=== PATIENT | male | born 1985 | race Caucasian/White ===

== ENCOUNTER 2023-07-18 08:00 | Outpatient (RCR) | payer MEDICAID, SELFPAY ==
--- NOTE | 2023-07-18 10:00 | BH.NA ---
Physical Data Vital Signs Pulse Rate: 67 Blood Pressure: 124/73 Height/Weight Height: 1.83 m Weight:: 95.254 kg Weight in Pounds: 210.0 lbs Current Medication Compliance Medication Compliance Do you take your medication as prescribed?: Yes Nutritional History Appetite Nutritional Instructions: Describe your appetite:: Good Additional nutritional information:: Client states he has gained about 20 lbs in the last month since starting his new medication (that he believes is Abilify). Functional Assessment Sleep Pattern Describe any problems with sleeping: Client states he usually sleeps about 6-8 hours per night, but does fall asleep during the day some. Client states he is getting a sleep study done tomorrow to rule out narcolepsy. Sensory/Communication Assess Communication Problems Do you have difficulty understanding what people are saying?: No Medical Problems/History Pain Assessment Do you have acute or chronic pain?: No Additional History Additional comments:: ADHD Surgical History Surgical History Have you had any surgeries? If so, list type and date:: Yes (varicocele) Substance Abuse Substance Abuse Please describe substance abuse in the last 30 days:: Client states he drinks alcohol socially, stating he drinks less than 1 time per week. Client is a current cigarette smoker, 1/2 pack per day and has been smoking for 6 years. Client states he has tried cocaine, marijuana, and acid in the past. Client states he used to drink 2 energy drinks per day for about 2 years, but states he does not drink them on a regular basis anymore. Mental Status Summary Mental Status Significant Findings/Observations on Appearance and Mood:: Client is alert and oriented x 4. Client is casually groomed. Client is cooperative with assessment. Client makes good eye contact. Client's voice has normal rate and volume. Client has appropriate affect. Client makes logical associations and has normal processing. Client denies delusions/hallucinations. Client denies SI since being discharged from [facility] in May 2023. Suicide Assessment Suicidal Ideation Are you currently or have you been suicidal in the past?: Yes Suicidal Intentional Rating Scale (SIRS): Suicidal thoughts (past) (denies current SI) Physician Notification Past Psychiatric History MH Treatment Hx Past Psychiatric Medications:: Lavonneaylar, Latuda, Seroquel Age of first mental health symptoms: Client states he was diagnosed with ADHD around 7th grade. Client states he trialed medication for his mental health about 2 years ago. Describe (age, circumstance, etc) any past hospitalizations: In [place] at age 18 after a suicide attempt by overdose, and most recently at [facility] 06/06-06/13/23 for suicidal ideations. Current providers for mental health treatment (counselor, psychiatrist, rifle case repairer, etc.): None. Fall Risk Assessment Age Age: Less than 60 Mental Status Mental Status: Willing & able to ask for assistance when needed Physical Status Physical Status: No problems Impairments Impairments: None Elimination Elimination: Continent AND independent Gait or Balance Gait or Balance: Walks independently Hx of Falls History of falls in the past 6 months: No known history Medications/Substances Psychotropics:: Antipsychotics and Stimulants Medications/substances used within the past 24 hours or ordered to administer: 1-2 of the medications/substances listed above Total Score Total Points:: 1 RN Summary of Impressions Impressions Recommendations Impressions: Psychiatric Issues: 1. Major depressive disorder, recurrent, severe without psychosis (improving) 2. Cannot rule out bipolar, NOS 3. Borderline personality disorder 4. Panic disorder 5. Rule out narcolepsy: Sleep study scheduled for tomorrow by PCP. Level of Care How do the client's current symptoms and functional deficits support need for this level of care?: Client was referred to [facility] after a recent hospitalization at [facility] in May 2023 after having suicidal ideations. The chart reports that the client told his he was suicidal, and she called the police and he was admitted. Client denies SI since being discharged from the hospital. Client states I'm feeling better since I was in the hospital, and I think I realized things aren't as bad as I thought they were . On intake to [facility], the client was accompanied by his that talked about Client's mood swings, racing thoughts, and obsessions with rejection and abandonment. [facility] will promote gains and prevent further decompensation while providing social support and skills training.
[2023-07-18 10:16] VITALS: PULSE 67
[2023-07-18 10:20] VITALS: BP 124/73
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
--- NOTE | 2023-07-18 12:09 | BH.DR.ITP ---
Initial Treatment Plan Patient Information Visit Information: ADMISSION DATE: EXPECTED LOS: 4-6 weeks Problems/Symptoms Problem #1:: Depression Symptom:: 's sadness, irritability, recent hopelessness and worthlessness. Biological disruption of appetite and weight. Increased sleep and low energy. Recent anhedonia. Passive thoughts of Problem #2:: Anxiety Symptom:: Worry, rumination, panic attacks
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
--- NOTE | 2023-07-18 14:22 | BH.COMM ---
Communication Note Communication with Client Communication Note: Met with patient to complete initial paperwork. No significant changes since pre-admission assessment. Medication compliant since inpatient hospitalization at [facility] Jun 07-. Continues to attend work daily. Completed C-SSRS. Pt appears to be a low to moderate risk given hx and current sx. Pt reports long-standing fleeting suicidal thoughts, denies any in the past month. No specific trigger to worsening sx. Denies any plan or intent in the past month. One previous SA at age 18 in which pt attempted overdose and was hospitalized in [place] for a week. Protective factors (pets, family, reasons for living, work). 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 Verbalizes he can keep himself safe. Hx of self-injurious behavior via cutting on one occasion when pt was 18. Denies access to any lethal means. Does not present as imminent danger given no SI in past month. Aware of crisis numbers. No family hx of completed suicide. Pt additionally noted he will not be in attendance remainder of the week due to scheduling conflict, pt will be attending 3 days next week.
--- NOTE | 2023-07-23 14:42 | BH.COMM ---
Communication Note Communication with Client Communication Note: Pt scheduled for IOP group and individual sessions on this date, however called to cancel due to a flat tire. Reports plans to attend on next scheduled day, 07/25/23
--- NOTE | 2023-07-25 14:43 | BH.COMM ---
Communication Note Communication with Client Communication Note: Pt scheduled for IOP group sessions today; however did not call or show for group. Therapist attempted to contact pt to follow-up, however was unable to reach. A discrete voicemail was left encouraging pt to return this provider's call.
--- NOTE | 2023-07-27 14:58 | BH.COMM ---
Communication Note Communication with Client Communication Note: Pt again no call/no showed tx on this date. Per IOP attendance policy and pt not returning communication attempts, He will be discharged on this date.
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
== END 2023-07-27 09:18 | disposition home or self-care (01) ==
LOC: BHIOP 08:00
PROVIDERS: PCP Nurse Practitioner Family; Referring Provider Psychiatry & Neurology Psychiatry; Visit Provider Psychiatry & Neurology Psychiatry
DX: F33.2 Major depressive disorder, recurrent severe without psychotic features (principal); F60.3 Borderline personality disorder; F41.0 Panic disorder [episodic paroxysmal anxiety]; Z79.899 Other long term (current) drug therapy
CPT/HCPCS: 90792; T1002